=== PATIENT | female | born 1990 | race Caucasian/White ===

== ENCOUNTER 2019-12-03 15:19 | Outpatient (CLI) | payer MEDICAID | END 2019-12-03 15:20 | disposition home or self-care (01) | LOC: COV 15:19 | PROVIDERS: ATTEND Family Medicine | DX: R53.83 Other fatigue (principal); R19.7 Diarrhea, unspecified; Z20.828 Contact with and (suspected) exposure to other viral communicable diseases ==

== ENCOUNTER 2020-02-13 12:57 | Emergency (ER) | payer MEDICAID ==
--- NOTE | 2020-02-13 13:33 | ED Physician Documentation ---
History of Present Illness - Stated complaint Stated Complaint: RT FOOT INJURY - Chief complaint Chief Complaint: Trauma Ext - History obtained from History obtained from: Patient - Additonal information Additional information: 29-year-old woman with past medical history of right fibular fracture in the past, no other medical problems presents with right foot pain for the past week, sudden onset after jamming her foot getting out of bed, associated with swelling to the lateral dorsal foot, aching constant moderate severity worse with bearing weight. She had a telephone appointment yesterday and was told to come in to get x-rays. Review of Systems Skin: denies: Lesions Musculoskeletal: reports: Extremity pain, Extremity swelling Neurologic: denies: Focal weakness, Numbness PD ED PE NORMAL - Vitals Vital signs reviewed: Yes - General General: Alert and oriented X 3 - HEENT HEENT: Atraumatic, PERRL, EOMI - Extremities Extremities: Other (R 5th metatarsal ttp. yellowing bruise and mild swelling over this area) - Neuro Neuro: No motor deficit, No sensory deficit Results - Vitals Vitals: Vital Signs - 24 hr 02/13/20 13:03 Temperature 98.5 C H Heart Rate 78 Respiratory 16 Rate Blood Pressure 120/77 O2 Saturation 100 Oxygen O2 Source Room air PD MEDICAL DECISION MAKING - ED course Complexity details: reviewed results, re-evaluated patient, d/w patient ED course: 29-year-old woman presents with likely fracture to right foot. Will obtain x- rays, splint crutches Ortho follow-up. Strict return precautions given
--- NOTE | 2020-02-13 14:21 | XRAY Report ---
PROCEDURE: Foot 3 View RT INDICATIONS: Right foot pain, swelling TECHNIQUE: 3 views of the foot were acquired. COMPARISON: None. FINDINGS: Bones: No fractures or dislocations. No suspicious bony lesions. Soft tissues: No tibiotalar joint effusion. Achilles tendon appears normal. IMPRESSION: No acute osseous abnormalities. Reviewed by: Margaux Morrison MD on 02/13/2020 2:19 PM PST Approved by: Margaux Morrison MD on 02/13/2020 2:19 PM PST Station ID: [id number]
[2020-02-13 14:51] VITALS: BP 99/62
== END 2020-02-13 14:55 | disposition home or self-care (01) ==
LOC: ED 12:57
DX: M79.671 Pain in right foot (principal); R22.41 Localized swelling, mass and lump, right lower limb
CPT/HCPCS: 99282; 99283

== ENCOUNTER 2020-07-31 17:41 | Outpatient (CLI) | payer MEDICAID ==
[2020-07-31 20:15] LABS: BASOPHILS % (AUTO) 0.5 %; EOSINOPHILS # (AUTO) 0.1 10^3/uL (0.0-0.7); EOSINOPHILS % (AUTO) 1.9 %; HCT - HEMATOCRIT 42.4 % (37.0-47.0); HGB - HEMOGLOBIN 14.1 g/dL (12.0-16.0); LYMPHOCYTES # (AUTO) 2.7 10^3/uL (1.5-3.5); LYMPHOCYTES % (AUTO) 36.3 %; MEAN CORPUSCULAR HEMOGLOBIN 30.9 pg (27.0-31.0); MEAN CORPUSCULAR HGB CONC 33.3 g/dL (32.0-36.0); MONOCYTES # (AUTO) 0.5 10^3/uL (0.0-1.0); MONOCYTES % (AUTO) 6.4 %; NEUTROPHILS % (AUTO) 54.5 %; PLT - PLATELET COUNT 265 10^3/uL (130-450); RED BLOOD COUNT 4.56 10^6/uL (4.20-5.40); RED CELL DISTRIBUTION WIDTH 12.6 % (12.0-15.0); WHITE BLOOD COUNT 7.4 x10^3/uL (4.8-10.8)
[2020-07-31 20:36] LABS: CALCIUM 9.4 mg/dL (8.5-10.3); CREATININE 0.8 mg/dL (0.4-1.0); POTASSIUM 3.7 mmol/L (3.5-5.0)
== END 2020-07-31 17:42 | disposition home or self-care (01) ==
LOC: LAB.S 17:41
PROVIDERS: ATTEND Obstetrics & Gynecology Female Pelvic Medicine and Reconstructive Surgery
DX: N80.9 Endometriosis, unspecified (principal); R10.2 Pelvic and perineal pain; N94.6 Dysmenorrhea, unspecified
CPT/HCPCS: 36415; 80048; 85025